=== PATIENT | female | born 1960 | race Caucasian/White ===

== ENCOUNTER 2017-05-27 11:19 | Emergency (ER) | payer OTHER ==
[~2017-05-27] VITALS: Ht 157.5 cm; Wt 78.0 kg
[~2017-05-27 11:19] MED LIST: CIPR500T4 PO; DOCU-144 PO; HYDR-762 PO; NAPR-260 PO; PHEN-538 PO
[2017-05-27 11:25] VITALS: Ht 157.5 cm; Wt 78.0 kg
[2017-05-27] MEDS ORDERED: DIPHTH/TET/ACEL PERTUSS (ADULT) 0.5 ML VIAL IM* ONE (12:00)
[2017-05-27] MEDS ORDERED: IBUPROFEN 600 MG TAB PO ONE (12:00)
[2017-05-27] MEDS ORDERED: LIDOCAINE 1% (MDV) 20 ML INJ SC ONE (12:00)
[2017-05-27] MEDS ORDERED: BACITRACIN 0.9 GM OINT TOP ONE (12:00)
[2017-05-27] MEDS ORDERED: AMOX1TAB10 PO (13:07)
--- NOTE | 2017-05-27 13:07 | ERD ---
ER Documentation Chief Complaint Chief Complaint Dog bite upper lip HPI The patient is a 57-year-old female who presents to the Emergency Department with a laceration to the upper lip s/p dog bite. The patient reports that prior to arrival she accidentally stepped on the foot of her dog. When she went down to caress him to apologize, he jumped and bit her upper lip, causing a laceration. She reports minimal pain to the site of the laceration at this time. Denies other wounds. Denies active bleeding. Of note, the dog is full vaccinated. The patient is uncertain about her tetanus status. No other complaints at this time. ROS All systems reviewed and are negative except as per history of present illness. Medications Home Meds Active Scripts Amoxicillin/Potassium Clav (Amox-Clav 875-125 mg Tablet) 875-125 mg Tab, 1 TAB PO BID for 7 Days, #14 TAB Prov:SALOMÓN ELLSWORTH PA-C 05/27/17 Naproxen* (Naprosyn*) 500 Mg Tablet, 500 MG PO BID Y for PAIN AND/OR INFLAMMATION, #30 TAB Prov:ASHLEIGH FUCHS [employer] 03/15/16 Naproxen* (Naprosyn*) 500 Mg Tablet, 500 MG PO BID Y for PAIN AND/OR INFLAMMATION, #10 TAB Prov:JULIUS CASAS DO 08/23/15 Docusate Sodium* (Colace*) 100 Mg Capsule, 100 MG PO TID, #30 CAP Prov:JULIUS CASAS DO 08/23/15 Ciprofloxacin Hcl* (Ciprofloxacin Hcl*) 500 Mg Tablet, 500 MG PO BID for 3 Days , TAB Prov:JULIUS CASAS DO 08/23/15 Phenazopyridine Hcl* (Pyridium*) 200 Mg Tab, 200 MG PO TID for URINARY PAIN, #6 TAB Prov:JULIUS CASAS DO 08/23/15 Hydrocodone Bit-Acetaminophen* ([place]*) 10-325 Mg Tablet, 1 TAB PO Q6 Y for PAIN , #10 TAB Prov:BREANNA MEYER [employer] 08/22/15 Allergies Allergies: Coded Allergies: No Known Allergy (Unverified , 08/22/15) PMhx/Soc Medical and Surgical Hx: pt denies Medical Hx History of Surgery: Yes (Tubal ligation) Anesthesia Reaction: No Hx Neurological Disorder: No Hx Respiratory Disorders: No Hx Cardiac Disorders: No Hx Psychiatric Problems: No Hx Miscellaneous Medical Probl: No Hx Alcohol Use: No Hx Substance Use: No Hx Tobacco Use: No Smoking Status: Never smoker Physical Exam Vitals Vital Signs Date Time Temp Pulse Resp B/P Pulse Ox O2 Delivery O2 Flow Rate FiO2 05/27/17 11:25 98.1 78 18 117/59 99 Physical Exam Const: Well-developed, well-nourished, in no acute distress. Head: Normocephalic. Eyes: Normal Conjunctiva. ENT: Normal External Ears, Nose and Mouth. Clear oropharynx. Neck: Supple. Full range of motion. Resp: Clear to auscultation bilaterally Cardio: Regular rate and rhythm Skin: 1.3 cm partial-thickness linear vertical laceration through the kit border of the right upper lip. No active bleeding. No foreign bodies. Ext: No clubbing, cyanosis, or edema. Neur: Awake and alert Psych: Normal Mood and Affect Results 24 hrs Current Medications Medications (Trade) Dose Ordered Sig/Shadi Route PRN Reason Start Time Stop Time Status Last Admin Dose Admin Diphtheria/ Tetanus/Acell Pertussis (Adacel) 0.5 ml ONCE ONCE IM* 05/27/17 12:00 05/27/17 12:01 DC 05/27/17 12:08 Ibuprofen (Motrin) 600 mg ONCE ONCE PO 05/27/17 12:00 05/27/17 12:01 DC 05/27/17 12:06 Lidocaine (Xylocaine 1% (Mdv) 20 ml) 20 ml ONCE ONCE SC 05/27/17 12:00 05/27/17 12:01 DC Bacitracin (Bacitracin Oint (Ud)) 1 applic ONCE ONCE TOP 05/27/17 12:00 05/27/17 12:01 DC Procedures/MDM PROCEDURAL NOTE: Laceration repair. INDICATIONS: 1.3 cm linear laceration to the right upper lip through the kit border. CONSENT: Consent was obtained from the patient prior to the procedure. Indications, risks and benefits were explained at length. Discussed risks of closing dog bites vs. cosmetic outcome. Will close loosely with close follow up and antibiotic therapy. PROCEDURAL SUMMARY: The patient was positioned appropriately. The site was anesthetized with 1 mL of 1% lidocaine without epinephrine. Normal saline and Betadine were used for wound irrigation. The wound was then explored, and no foreign body visualized, no tendon injury. The area was prepared and draped in the usual sterile manner with the wound exposed. Two 6-0 simple interrupted Ethilon sutures are placed with good wound closure and good wound approximation. Bleeding was minimal. The patient tolerated the procedure well without complications. The wound was dressed with bacitracin. Standard post procedure care was explained and return precautions were given. On re- evaluation, the patient was resting comfortable with no pain localized to the site of injury. She was neurovascularly and neurologically intact post- procedure. MEDICAL DECISION MAKING: This is a 57-year-old female presenting to the emergency department with a laceration to the right upper lip status post dog bite. The patient had no other abnormalities on physical examination. Vital signs remained stable. The patient's wound was copious irrigated. Given concern for cosmetic outcome, laceration repair was performed. The patient's laceration was closed with sutures. She had good wound closure and wound approximation, and tolerated the procedure well. Post-procedure care explained. Bacitracin was applied. Tdap was administered. After rest, the patient reports no new complaints. Upon my review and interpretation of the patient's presentation and overall ER course, I believe the patient's symptoms are most consistent with lip laceration due to dog bite. At this time, the patient is in stable condition, and therefore can be discharged home with a prescription for Augmentin as prophylaxis, and strict return precautions for signs of infectious process, worsening or deteriorating condition. The patient has been instructed to follow up with her primary care provider for wound check, reevaluation and further management within 2 days, suture removal in 5-7 days, or to return to the ER sooner for any new or worsening symptoms. I shared my medical decision making and plan with the patient at length and in great detail, and the patient verbally understands and agrees with the plan for further observation and care as an outpatient. At the time of discharge, all questions were answered. Departure Diagnosis: Primary Impression: Dog bite of vermilion of upper lip Encounter type: initial encounter Qualified Code: S01.551A - Dog bite of vermilion of upper lip, initial encounter Condition: Stable Patient Instructions: Dog Bite, Laceration, How To Minimize Scar, Laceration, Lip/Mouth Additional Instructions: Follow up in 2 days for wound check, reevaluation and further management. Suture removal in 5-7 days. Return to the ED sooner for any new or worsening symptoms. SALOMÓN ELLSWORTH PA-C May 27, 2017 13:07
== END 2017-05-27 13:30 | disposition home or self-care (01) ==
LOC: FTE 11:19
DX: S01.511A Laceration without foreign body of lip, initial encounter (principal); W54.0XXA Bitten by dog, initial encounter; Y92.9 Unspecified place or not applicable; Z23 Encounter for immunization
CPT/HCPCS: 12011; 90471; 90715; Z7502; Z7610

== ENCOUNTER 2017-06-05 19:23 | Emergency (ER) | END 2017-06-05 20:06 | disposition home or self-care (01) ==

== ENCOUNTER 2017-11-28 23:18 | Emergency (ER) | END 2017-11-29 02:12 | disposition home or self-care (01) ==